=== PATIENT | male | born 1960 | race Caucasian/White ===

== ENCOUNTER 2016-12-21 07:30 | Day surgery (SDC) | payer OTHER ==
[~2016-12-21 07:30] MED LIST: Lactated Ringers 1,000 ML IV SCH
[2016-12-21] MEDS ORDERED: Propofol 200 MG/20 ML SDV IV ONE (09:00)
[2016-12-21] MEDS ORDERED: Midazolam 1 MG/ML 2 ML SDV IV ONE (09:00)
[2016-12-21] MEDS ORDERED: Bupivacaine 0.5% 30 ML SDV INJECT ONE (09:31)
[2016-12-21] MEDS ORDERED: Lidocaine 1% with EPINEPHrine 1:100,000 20 ML MDV INJECT ONE (09:31)
--- NOTE | 2016-12-21 09:55 | PCM.OPNOTE ---
- General Post-Op/Procedure Note Date of Surgery/Procedure: 12/21/16 Operative Procedure(s): excision of left shoulder cyst. Findings: bursal cyst Pre Op Diagnosis: left shoulder cyst Post-Op Diagnosis: Same Anesthesia Technique: General ET Tube, MAC (10 ml 1 % lido with epi/0.5% buvipicaine) Primary Surgeon: Adria Stovall Anesthesia Provider: Amita Macedo Pathology: cyst Complications: None Condition: Good Free Text/Narrative:: see dictation
[2016-12-21] MEDS ORDERED: Acetaminophen/HYDROcodone 325-5 MG Tab PO ONE (10:11)
[2016-12-21 12:09] VITALS: BP 144/95
--- NOTE | 2016-12-21 13:53 | OR ---
DATE OF OPERATION: 12/21/2016 SURGEON: Adria Stovall MD PROCEDURE PERFORMED: Excisional biopsy of a cyst of the left shoulder. PREOPERATIVE DIAGNOSIS: Left shoulder cyst. POSTOPERATIVE DIAGNOSIS: Left shoulder cyst. INDICATIONS FOR PROCEDURE: This is a 56-year-old white male who is referred with a cyst located on his left shoulder just medial to the shoulder joint. Preoperative workup demonstrated that this appeared to be a subcutaneous lesion which did not appear to involve the joint capsule. INTRAOPERATIVE FINDINGS: As follows: A cystic lesion of approximately 4 cm in diameter was removed that did appear to have a base down on an arthritic portion of his shoulder joint. A total of 10 mL of 1:1 mixture of 1% lidocaine with epinephrine, 0.5% bupivacaine was used. DESCRIPTION OF PROCEDURE: After an excellent IV sedation was administered, the patient was prepped and draped in usual sterile manner. Local was used to infiltrate the skin in the tissue surrounding the cyst and an incision was made over the lesion. Sharp dissection was carried out coming around the cyst circumferentially, appeared to have a base down at what appeared to be a bony extrusion at the edge of the shoulder joint. This was carefully excised. We did not appear to enter the joint capsule at all. The area was irrigated. The wound was closed after the specimen was passed off the field with a running 3-0 Vicryl followed by reapproximating the subcutaneous tissue, followed by mike. Needle, sponge, and instrument counts were reported as correct. The patient was taken to recovery room in good condition. /[id number] /MODL
== END 2016-12-21 11:55 | disposition home or self-care (01) ==
LOC: FB.SDS 07:30
PROVIDERS: ATTEND Surgery
DX: M71.312 Other bursal cyst, left shoulder (principal); E78.2 Mixed hyperlipidemia; F41.9 Anxiety disorder, unspecified; F32.9 Major depressive disorder, single episode, unspecified; J44.9 Chronic obstructive pulmonary disease, unspecified; G47.30 Sleep apnea, unspecified; Z98.890 Other specified postprocedural states; Z87.891 Personal history of nicotine dependence
CPT/HCPCS: 23071; 88304; A9270; J2250; J2704; J7120

== ENCOUNTER 2022-10-03 06:55 | Day surgery (SDC) | payer OTHER, MEDICARE ==
[2022-10-03] MEDS ORDERED: Propofol 200 MG/20 ML SDV IV ONE (06:56)
[2022-10-03] MEDS ORDERED: Midazolam 1 MG/ML 2 ML SDV IV ONE (06:56)
[2022-10-03] MEDS ORDERED: Ketamine 500 mg/10 ML MDV IV ONE (06:56)
[2022-10-03] MEDS ORDERED: Sodium Chloride 0.9% 10 ML Syringe FLUSH PRN (07:00)
[2022-10-03] MEDS ORDERED: Lactated Ringers 1,000 ML IV SCH (07:00)
[2022-10-03 07:28] VITALS: BP 136/69; PULSE 81
== END 2022-10-03 09:25 | disposition home or self-care (01) ==
LOC: FB.SDS 06:55
PROVIDERS: ATTEND Surgery
DX: K57.30 Diverticulosis of large intestine without perforation or abscess without bleeding (principal); F41.9 Anxiety disorder, unspecified; M19.90 Unspecified osteoarthritis, unspecified site; J44.9 Chronic obstructive pulmonary disease, unspecified; F32.A Depression, unspecified; E11.9 Type 2 diabetes mellitus without complications; K21.9 Gastro-esophageal reflux disease without esophagitis; G47.30 Sleep apnea, unspecified; E78.5 Hyperlipidemia, unspecified; Z79.899 Other long term (current) drug therapy; Z98.890 Other specified postprocedural states; Z87.891 Personal history of nicotine dependence
CPT/HCPCS: 00811; 45378; J2250; J2704; J3490; J7120